=== PATIENT | male | born 1945 | race Caucasian/White ===

== ENCOUNTER 2019-10-07 08:58 | Outpatient (RCR) | payer OTHER, SELFPAY | END 2019-12-22 08:15 | disposition home or self-care (01) | LOC: ANHDMC 08:58 | PROVIDERS: PCP Family Medicine; Visit Provider Family Medicine | DX: E11.65 Type 2 diabetes mellitus with hyperglycemia (principal); Z71.89 Other specified counseling | CPT/HCPCS: G0108 ==

== ENCOUNTER 2020-09-15 08:41 | Outpatient (CLI) | payer OTHER, SELFPAY ==
[2020-09-15 19:03] LABS: Iron 63 ug/dL (49-181)
[2020-09-15 19:05] LABS: Basophils Absolute Auto 0.1 K/mm3 (0.0-0.1); Basophils Percent Auto 0.9 % (0.2-1.2); Eosinophils Absolute Auto 0.3 K/mm3 (0-0.3); Eosinophils Percent Auto 4.1 % (0-4.4); Hematocrit 33.5 % (42.0-52.0); Hemoglobin 10.7 g/dL (14.0-18.0); Immature Granulocyte Absolute 0.04 K/mm3 (0.00-0.031); Immature Granulocyte Percent A 0.5 % (0-0.5); Lymphocytes Absolute Auto 2.25 K/mm3 (0.9-3.2); Lymphocytes Percent Auto 27.8 % (18.3-44.2); Mean Corpuscular HGB Conc 31.9 g/dl (32-36); Mean Corpuscular Hemoglobin 30.1 pg (26-34); Mean Corpuscular Volume 94.4 fl (80-100); Mean Platelet Volume 9.5 fl (7.4-10.4); Monocytes Absolute Auto 0.5 K/mm3 (0.1-0.6); Monocytes Percent Auto 6.4 % (2.6-8.5); Neutrophils Absolute Auto 4.9 K/mm3 (1.3-6.7); Neutrophils Percent Auto 60.3 % (45.5-73.1); Platelet Count Result 186 k/mm3 (150-375); Red Blood Count 3.55 M/mm3 (4.6-6.20); Red Cell Distribution Width 15.2 % (11.5-14.5); White Blood Count 8.1 K/mm3 (4.5-10.0)
[2020-09-15 19:07] LABS: Alanine Aminotransferase 18 U/L (4-50); Albumin Level 3.9 g/dL (3.5-5.1); Alkaline Phosphatase 125 U/L (38-126); Anion Gap 9 mmol/L (8-16); Aspartate Amino Transferase 21 U/L (17-59); Bilirubin,Total 0.4 mg/dL (0.2-1.3); Blood Urea Nitrogen 27 mg/dL (9-20); Calcium 9.3 mg/dL (8.4-10.2); Carbon Dioxide 27 mmol/L (22-30); Chloride 102 mmol/L (98-107); Cholesterol 123 mg/dL (0-200); Estimated Glomerular Filt Rate 54; Glucose 160 mg/dL (65-110); HDL Direct 37 mg/dL; Potassium 4.7 mmol/L (3.4-5.0); Sodium 138 mmol/L (137-145); Triglycerides 71 mg/dL (<150)
[2020-09-15 19:09] LABS: Add Urine Microscopic? YES; Amorphous Sediment Urine Few; Appearance Urine Turbid (Clear); Bacteria Urine Trace /hpf; Bilirubin Urine Negative (Negative); Blood Urine 1+ (Negative); Color Urine Amber (Yellow); Glucose Urine UA 1+ mg/dL (Negative); Ketones Urine Negative (Negative); Leukocyte Esterase Ur 3+ LEU/UL (Negative); Nitrate Urine Negative (Negative); Protein Urine 1+ mg/dL (Negative); Specific Grav Ur 1.012 (1.001-1.035); Urobilinogen Urine Negative mg/dL (<2.0); WBC Clumps Urine Present /HPF; WBC Urine >75 /hpf
[2020-09-15 19:15] LABS: Percent Iron Saturation 22 % (20-50)
[2020-09-15 19:18] LABS: LDL Cholesterol Direct 65 mg/dL
[2020-09-15 19:21] LABS: Creatinine Urine 60.1 mg/dL
[2020-09-15 19:26] LABS: MALB Creatinine Ratio 162.1 mg/g (0-30); Microalbumin Urine Random 97.4 mg/L (0-16.7)
[2020-09-15 19:36] LABS: Prostate Specific Antigen 4.9 ng/mL (< OR = 4.0)
[2020-09-15 20:14] LABS: Folic Acid > 20.0 ng/mL (2.76->20); Vitamin B12 > 1000.0 pg/mL (239-931)
[2020-09-19 06:20] LABS: C-Peptide 0.88 ng/mL (0.80-3.85)
[2020-09-19 10:50] LABS: Testosterone Free 45.3 pg/mL (30.0-135.0); Testosterone Total 365 ng/dL (250-1100)
== END 2020-09-15 08:42 | disposition home or self-care (01) ==
PROVIDERS: PCP Family Medicine; Referring Provider Internal Medicine Endocrinology, Diabetes & Metabolism; Visit Provider Family Medicine
DX: R53.83 Other fatigue (principal); Z82.62 Family history of osteoporosis; E11.59 Type 2 diabetes mellitus with other circulatory complications; I10 Essential (primary) hypertension; Z71.3 Dietary counseling and surveillance; D64.9 Anemia, unspecified; Z79.4 Long term (current) use of insulin; E11.65 Type 2 diabetes mellitus with hyperglycemia; R80.9 Proteinuria, unspecified; Z79.899 Other long term (current) drug therapy; N99.89 Other postprocedural complications and disorders of genitourinary system; Z12.5 Encounter for screening for malignant neoplasm of prostate
CPT/HCPCS: 36415; 80053; 80061; 81001; 82043; 82607; 82746; 83036; 83540; 83550; 84153; 84402; 84403; 84443; 84681; 85025; 87077; 87086; 87088; 87186; G0103

== ENCOUNTER 2020-11-25 10:32 | Outpatient (CLI) | payer OTHER, SELFPAY ==
[2020-11-25 19:48] LABS: Basophils Absolute Auto 0.1 K/mm3 (0.0-0.1); Basophils Percent Auto 0.8 % (0.2-1.2); Eosinophils Absolute Auto 0.2 K/mm3 (0-0.3); Eosinophils Percent Auto 3.3 % (0-4.4); Hematocrit 36.8 % (42.0-52.0); Hemoglobin 11.7 g/dL (14.0-18.0); Immature Granulocyte Absolute 0.02 K/mm3 (0.00-0.031); Immature Granulocyte Percent A 0.3 % (0-0.5); Lymphocytes Absolute Auto 2.41 K/mm3 (0.9-3.2); Mean Corpuscular HGB Conc 31.8 g/dl (32-36); Mean Corpuscular Hemoglobin 30.2 pg (26-34); Mean Corpuscular Volume 95.1 fl (80-100); Mean Platelet Volume 9.9 fl (7.4-10.4); Monocytes Absolute Auto 0.4 K/mm3 (0.1-0.6); Neutrophils Absolute Auto 4.1 K/mm3 (1.3-6.7); Neutrophils Percent Auto 56.6 % (45.5-73.1); Platelet Count Result 183 k/mm3 (150-375); Red Blood Count 3.87 M/mm3 (4.6-6.20); Red Cell Distribution Width 13.8 % (11.5-14.5); White Blood Count 7.3 K/mm3 (4.5-10.0)
[2020-11-25 20:22] LABS: Prostate Specific Antigen 5.5 ng/mL (< OR = 4.0)
== END 2020-11-25 10:33 | disposition home or self-care (01) ==
PROVIDERS: PCP Family Medicine; Visit Provider Family Medicine
DX: D64.9 Anemia, unspecified (principal); R97.20 Elevated prostate specific antigen [PSA]; Z12.5 Encounter for screening for malignant neoplasm of prostate
CPT/HCPCS: 36415; 84153; 85025; G0103

== ENCOUNTER 2021-01-06 11:45 | Outpatient (CLI) | payer OTHER, SELFPAY ==
[2021-01-06 18:23] LABS: Hematocrit 36.7 % (42.0-52.0); Hemoglobin 12.3 g/dL (14.0-18.0); Mean Corpuscular HGB Conc 33.5 g/dl (32-36); Mean Corpuscular Hemoglobin 30.8 pg (26-34); Mean Corpuscular Volume 91.8 fl (80-100); Mean Platelet Volume 10.1 fl (7.4-10.4); Platelet Count Result 157 k/mm3 (150-375); Red Cell Distribution Width 13.4 % (11.5-14.5); White Blood Count 8.2 K/mm3 (4.5-10.0)
[2021-01-06 22:53] LABS: Hemoglobin A1C 8.8 % (<5.7)
[2021-01-07 00:52] LABS: Prostate Specific Antigen 5.4 ng/mL (< OR = 4.0)
== END 2021-01-06 11:46 | disposition home or self-care (01) ==
PROVIDERS: PCP Family Medicine; Visit Provider Family Medicine
DX: E11.65 Type 2 diabetes mellitus with hyperglycemia (principal); R97.20 Elevated prostate specific antigen [PSA]; Z79.4 Long term (current) use of insulin; Z98.890 Other specified postprocedural states; D64.9 Anemia, unspecified; Z12.5 Encounter for screening for malignant neoplasm of prostate
CPT/HCPCS: 36415; 83036; 84153; 85027; G0103

== ENCOUNTER 2021-04-07 10:13 | Outpatient (CLI) | payer OTHER, SELFPAY ==
[2021-04-07 19:09] LABS: Basophils Absolute Auto 0.1 K/mm3 (0.0-0.1); Eosinophils Absolute Auto 0.4 K/mm3 (0-0.3); Eosinophils Percent Auto 4.8 % (0-4.4); Hemoglobin 11.9 g/dL (14.0-18.0); Immature Granulocyte Absolute 0.03 K/mm3 (0.00-0.031); Immature Granulocyte Percent A 0.3 % (0-0.5); Lymphocytes Absolute Auto 2.51 K/mm3 (0.9-3.2); Lymphocytes Percent Auto 28.3 % (18.3-44.2); Mean Corpuscular HGB Conc 33.1 g/dl (32-36); Mean Corpuscular Hemoglobin 31.6 pg (26-34); Mean Corpuscular Volume 95.7 fl (80-100); Mean Platelet Volume 9.9 fl (7.4-10.4); Monocytes Absolute Auto 0.5 K/mm3 (0.1-0.6); Monocytes Percent Auto 5.9 % (2.6-8.5); Neutrophils Absolute Auto 5.3 K/mm3 (1.3-6.7); Neutrophils Percent Auto 59.7 % (45.5-73.1); Platelet Count Result 166 k/mm3 (150-375); Red Blood Count 3.76 M/mm3 (4.6-6.20); Red Cell Distribution Width 13.5 % (11.5-14.5); White Blood Count 8.9 K/mm3 (4.5-10.0)
[2021-04-07 19:20] LABS: Alanine Aminotransferase 22 U/L (4-50); Albumin Level 4.3 g/dL (3.5-5.1); Alkaline Phosphatase 97 U/L (38-126); Anion Gap 7 mmol/L (8-16); Aspartate Amino Transferase 23 U/L (17-59); Bilirubin,Total 0.4 mg/dL (0.2-1.3); Blood Urea Nitrogen 46 mg/dL (9-20); Calcium 9.5 mg/dL (8.4-10.2); Carbon Dioxide 28 mmol/L (22-30); Chloride 100 mmol/L (98-107); Estimated Glomerular Filt Rate 49; Glucose 305 mg/dL (65-110); Potassium 5.1 mmol/L (3.4-5.0); Sodium 135 mmol/L (137-145)
[2021-04-07 19:46] LABS: Hemoglobin A1C 8.2 % (<5.7)
[2021-04-07 20:10] LABS: Vitamin B12 > 1000.0 pg/mL (239-931)
== END 2021-04-07 10:14 | disposition home or self-care (01) ==
PROVIDERS: PCP Family Medicine; Visit Provider Family Medicine
DX: R20.0 Anesthesia of skin (principal); D64.9 Anemia, unspecified; E11.65 Type 2 diabetes mellitus with hyperglycemia; I48.0 Paroxysmal atrial fibrillation; Z86.73 Personal history of transient ischemic attack (TIA), and cerebral infarction without residual deficits; I34.0 Nonrheumatic mitral (valve) insufficiency; Z79.4 Long term (current) use of insulin
CPT/HCPCS: 36415; 80053; 82607; 83036; 85025

== ENCOUNTER 2021-07-07 10:33 | Outpatient (CLI) | payer OTHER, SELFPAY ==
[2021-07-07 18:49] LABS: Hematocrit 36.9 % (42.0-52.0); Hemoglobin 11.5 g/dL (14.0-18.0); Mean Corpuscular HGB Conc 31.2 g/dl (32-36); Mean Corpuscular Hemoglobin 30.1 pg (26-34); Mean Corpuscular Volume 96.6 fl (80-100); Platelet Count Result 172 k/mm3 (150-375); Red Blood Count 3.82 M/mm3 (4.6-6.20); Red Cell Distribution Width 14.1 % (11.5-14.5); White Blood Count 8.2 K/mm3 (4.5-10.0)
[2021-07-07 19:12] LABS: Creatinine Urine 67.4 mg/dL
[2021-07-07 19:17] LABS: MALB Creatinine Ratio 70.5 mg/g (0-30); Microalbumin Urine Random 47.5 mg/L (0-16.7)
[2021-07-07 19:47] LABS: Alanine Aminotransferase 21 U/L (6-50); Albumin Level 4.3 g/dL (3.5-5.1); Alkaline Phosphatase 99 U/L (38-126); Anion Gap 10 mmol/L (8-16); Aspartate Amino Transferase 26 U/L (17-59); Bilirubin,Total 0.5 mg/dL (0.2-1.3); Blood Urea Nitrogen 37 mg/dL (9-20); Calcium 9.1 mg/dL (8.4-10.2); Carbon Dioxide 25 mmol/L (22-30); Chloride 98 mmol/L (98-107); Estimated Glomerular Filt Rate 49; Glucose 278 mg/dL (65-110); Potassium 5.3 mmol/L (3.4-5.0); Sodium 133 mmol/L (137-145)
[2021-07-07 20:01] LABS: Hemoglobin A1C 7.9 % (<5.7)
[2021-07-07 20:17] LABS: Prostate Specific Antigen 5.6 ng/mL (< OR = 4.0)
== END 2021-07-07 10:34 | disposition home or self-care (01) ==
PROVIDERS: PCP Family Medicine; Visit Provider Family Medicine
DX: D64.9 Anemia, unspecified (principal); Z86.73 Personal history of transient ischemic attack (TIA), and cerebral infarction without residual deficits; E11.65 Type 2 diabetes mellitus with hyperglycemia; Z79.4 Long term (current) use of insulin; Z12.5 Encounter for screening for malignant neoplasm of prostate
CPT/HCPCS: 36415; 80053; 82043; 83036; 84153; 85027; G0103

== ENCOUNTER 2021-08-29 14:59 | Outpatient (CLI) | payer OTHER, SELFPAY ==
--- NOTE | ~2021-08-29 | XR_ITS ---
XR ankle RT min 3V DATE: 08/29/2021 15:25 INDICATION: Pain and stiffness of right ankle. No known injury TECHNIQUE: 4 views COMPARISON: None FINDINGS: There is prominent plantar and mild posterior calcaneal enthesopathy. No fracture or dislocation of the ankle or disruption of the ankle mortise. No periosteal reaction or bone destruction. IMPRESSION: Plantar and posterior calcaneal enthesopathy Reviewed, dictated and finalized at location A.
[2021-08-29 20:27] LABS: Anion Gap 9 mmol/L (8-16); Blood Urea Nitrogen 35 mg/dL (9-20); Calcium 9.2 mg/dL (8.4-10.2); Carbon Dioxide 27 mmol/L (22-30); Chloride 102 mmol/L (98-107); Estimated Glomerular Filt Rate 54; Glucose 201 mg/dL (65-110); Potassium 4.4 mmol/L (3.4-5.0); Sodium 138 mmol/L (137-145)
== END 2021-08-29 15:00 | disposition home or self-care (01) ==
PROVIDERS: PCP Family Medicine; Visit Provider Family Medicine
DX: S93.429A Sprain of deltoid ligament of unspecified ankle, initial encounter (principal); X58.XXXA Exposure to other specified factors, initial encounter; E87.5 Hyperkalemia; M77.31 Calcaneal spur, right foot
CPT/HCPCS: 36415; 73610; 80048

== ENCOUNTER 2021-10-06 11:54 | Outpatient (CLI) | payer OTHER, SELFPAY ==
[2021-10-06 19:58] LABS: Hematocrit 37.6 % (42.0-52.0); Hemoglobin 12.3 g/dL (14.0-18.0); Mean Corpuscular HGB Conc 32.7 g/dl (32-36); Mean Corpuscular Hemoglobin 30.9 pg (26-34); Mean Corpuscular Volume 94.5 fl (80-100); Mean Platelet Volume 10.2 fl (7.4-10.4); Platelet Count Result 172 k/mm3 (150-375); Red Blood Count 3.98 M/mm3 (4.6-6.20); Red Cell Distribution Width 13.5 % (11.5-14.5)
[2021-10-06 21:05] LABS: Hemoglobin A1C 7.7 % (<5.7)
== END 2021-10-06 11:55 | disposition home or self-care (01) ==
LOC: ANHBWCLAB 11:55
PROVIDERS: PCP Family Medicine; Visit Provider Family Medicine
DX: E11.65 Type 2 diabetes mellitus with hyperglycemia (principal); Z79.4 Long term (current) use of insulin; D46.9 Myelodysplastic syndrome, unspecified
CPT/HCPCS: 36415; 83036; 85027

== ENCOUNTER 2021-12-05 11:35 | Outpatient (CLI) | payer OTHER, SELFPAY ==
[2021-12-05 20:20] LABS: Anion Gap 11 mmol/L (8-16); Blood Urea Nitrogen 31 mg/dL (9-20); Calcium 9.2 mg/dL (8.4-10.2); Carbon Dioxide 27 mmol/L (22-30); Chloride 99 mmol/L (98-107); Estimated Glomerular Filt Rate 49; Glucose 448 mg/dL (65-110); Potassium 4.7 mmol/L (3.4-5.0); Sodium 137 mmol/L (137-145)
[2021-12-05 20:47] LABS: Prostate Specific Antigen 5.6 ng/mL (< OR = 4.0)
== END 2021-12-05 11:36 | disposition home or self-care (01) ==
PROVIDERS: PCP Family Medicine; Visit Provider Family Medicine
DX: N40.0 Benign prostatic hyperplasia without lower urinary tract symptoms (principal); N17.9 Acute kidney failure, unspecified; G62.9 Polyneuropathy, unspecified; Z86.73 Personal history of transient ischemic attack (TIA), and cerebral infarction without residual deficits; E11.65 Type 2 diabetes mellitus with hyperglycemia; Z79.4 Long term (current) use of insulin; Z79.899 Other long term (current) drug therapy; Z12.5 Encounter for screening for malignant neoplasm of prostate
CPT/HCPCS: 36415; 80048; 82607; 84153; 84443; G0103

== ENCOUNTER 2022-01-16 10:47 | Outpatient (CLI) | payer OTHER, SELFPAY | END 2022-01-16 10:48 | disposition home or self-care (01) | PROVIDERS: PCP Family Medicine; Visit Provider Family Medicine | DX: E11.9 Type 2 diabetes mellitus without complications (principal) | CPT/HCPCS: 36415; 83036 ==

== ENCOUNTER 2022-03-07 11:27 | Outpatient (CLI) | payer OTHER, SELFPAY ==
[2022-03-07 20:28] LABS: Basophils Absolute Auto 0.1 K/mm3 (0.0-0.1); Basophils Percent Auto 1.2 % (0.2-1.2); Eosinophils Absolute Auto 0.4 K/mm3 (0-0.3); Hematocrit 39.2 % (42.0-52.0); Hemoglobin 12.5 g/dL (14.0-18.0); Immature Granulocyte Absolute 0.02 K/mm3 (0.00-0.031); Immature Granulocyte Percent A 0.3 % (0-0.5); Lymphocytes Absolute Auto 2.28 K/mm3 (0.9-3.2); Lymphocytes Percent Auto 31.4 % (18.3-44.2); Mean Corpuscular HGB Conc 31.9 g/dl (32-36); Mean Corpuscular Hemoglobin 30.8 pg (26-34); Mean Corpuscular Volume 96.6 fl (80-100); Mean Platelet Volume 10.1 fl (7.4-10.4); Monocytes Absolute Auto 0.6 K/mm3 (0.1-0.6); Monocytes Percent Auto 7.8 % (2.6-8.5); Neutrophils Percent Auto 54.3 % (45.5-73.1); Platelet Count Result 151 k/mm3 (150-375); Red Blood Count 4.06 M/mm3 (4.6-6.20); Red Cell Distribution Width 13.2 % (11.5-14.5); White Blood Count 7.3 K/mm3 (4.5-10.0)
[2022-03-07 20:34] LABS: Alanine Aminotransferase 21 U/L (6-50); Albumin Level 4.5 g/dL (3.5-5.1); Alkaline Phosphatase 94 U/L (38-126); Anion Gap 5 mmol/L (8-16); Aspartate Amino Transferase 29 U/L (17-59); Bilirubin,Total 0.5 mg/dL (0.2-1.3); Blood Urea Nitrogen 30 mg/dL (9-20); Calcium 9.1 mg/dL (8.4-10.2); Carbon Dioxide 30 mmol/L (22-30); Chloride 102 mmol/L (98-107); Estimated Glomerular Filt Rate 53; Glucose 111 mg/dL (65-110); Potassium 4.6 mmol/L (3.4-5.0); Sodium 137 mmol/L (137-145)
[2022-03-07 22:32] LABS: Appearance Urine Clear (Clear); Bilirubin Urine Negative (Negative); Blood Urine Negative (Negative); Color Urine Yellow (Yellow); Glucose Urine UA Trace mg/dL (Negative); Ketones Urine Negative (Negative); Leukocyte Esterase Ur Trace LEU/UL (NEGATIVE); Nitrate Urine Negative (Negative); Protein Urine Negative (Negative); Urobilinogen Urine 0.2 mg/dL (<2.0)
[2022-03-07 23:05] LABS: Mucus Urine Rare /lpf; RBC Urine 0-2 /hpf (0-2)
[2022-03-07 23:18] LABS: Add Urine Microscopic? YES
== END 2022-03-07 11:28 | disposition home or self-care (01) ==
LOC: ANHBWCLAB 11:28
PROVIDERS: PCP Family Medicine; Visit Provider Family Medicine
DX: R20.0 Anesthesia of skin (principal); G62.9 Polyneuropathy, unspecified; E87.5 Hyperkalemia; N40.0 Benign prostatic hyperplasia without lower urinary tract symptoms; R53.1 Weakness
CPT/HCPCS: 36415; 80053; 81001; 85025

== ENCOUNTER 2022-06-06 10:48 | Outpatient (CLI) | payer OTHER, SELFPAY ==
[2022-06-06 20:55] LABS: Hemoglobin A1C 7.8 % (<5.7)
== END 2022-06-06 10:49 | disposition home or self-care (01) ==
LOC: ANHBWCLAB 10:50
PROVIDERS: PCP Family Medicine; Visit Provider Nurse Practitioner Family
DX: E11.65 Type 2 diabetes mellitus with hyperglycemia (principal); Z79.4 Long term (current) use of insulin
CPT/HCPCS: 36415; 83036

== ENCOUNTER 2022-09-11 10:36 | Outpatient (CLI) | payer OTHER, SELFPAY ==
[2022-09-11 19:17] LABS: Hemoglobin 12.1 g/dL (14.0-18.0); Mean Corpuscular HGB Conc 31.8 g/dl (32-36); Mean Corpuscular Hemoglobin 31.2 pg (26-34); Mean Corpuscular Volume 97.9 fl (80-100); Mean Platelet Volume 10.3 fl (7.4-10.4); Platelet Count Result 149 k/mm3 (150-375); Red Blood Count 3.88 M/mm3 (4.6-6.20); Red Cell Distribution Width 13.5 % (11.5-14.5); White Blood Count 7.6 K/mm3 (4.5-10.0)
[2022-09-11 20:27] LABS: Cholesterol 134 mg/dL (0-200); HDL Direct 37 mg/dL; Triglycerides 73 mg/dL (<150)
[2022-09-11 20:36] LABS: Alanine Aminotransferase 25 U/L (6-50); Albumin Level 4.6 g/dL (3.5-5.1); Alkaline Phosphatase 91 U/L (38-126); Anion Gap 10 mmol/L (8-16); Aspartate Amino Transferase 41 U/L (17-59); Bilirubin,Total 0.4 mg/dL (0.2-1.3); Blood Urea Nitrogen 32 mg/dL (9-20); Calcium 9.5 mg/dL (8.4-10.2); Carbon Dioxide 28 mmol/L (22-30); Chloride 102 mmol/L (98-107); Estimated Glomerular Filt Rate 42; Glucose 145 mg/dL (65-110); Potassium 4.9 mmol/L (3.4-5.0); Sodium 140 mmol/L (137-145)
[2022-09-11 20:38] LABS: LDL Cholesterol Direct 69 mg/dL
[2022-09-11 21:44] LABS: Creatinine Urine 68.6 mg/dL
[2022-09-11 21:49] LABS: MALB Creatinine Ratio 26.5 mg/g (0-30); Microalbumin Urine Random 18.2 mg/L (0-16.7)
[2022-09-11 22:00] LABS: Hemoglobin A1C 7.5 % (<5.7)
== END 2022-09-11 10:37 | disposition home or self-care (01) ==
PROVIDERS: PCP Family Medicine; Visit Provider Family Medicine
DX: D64.9 Anemia, unspecified (principal); E11.65 Type 2 diabetes mellitus with hyperglycemia; E78.5 Hyperlipidemia, unspecified; E87.5 Hyperkalemia; G62.9 Polyneuropathy, unspecified; I34.0 Nonrheumatic mitral (valve) insufficiency; I48.0 Paroxysmal atrial fibrillation; N40.0 Benign prostatic hyperplasia without lower urinary tract symptoms; R20.0 Anesthesia of skin; R53.1 Weakness; R97.20 Elevated prostate specific antigen [PSA]; Z79.4 Long term (current) use of insulin; Z86.73 Personal history of transient ischemic attack (TIA), and cerebral infarction without residual deficits; Z12.5 Encounter for screening for malignant neoplasm of prostate
CPT/HCPCS: 36415; 80053; 80061; 82043; 83036; 84153; 85027; G0103

== ENCOUNTER 2022-12-11 11:11 | Outpatient (CLI) | payer OTHER, SELFPAY ==
[2022-12-11 20:54] LABS: Alanine Aminotransferase 29 U/L (6-50); Albumin Level 4.4 g/dL (3.5-5.1); Alkaline Phosphatase 100 U/L (38-126); Anion Gap 8 mmol/L (8-16); Aspartate Amino Transferase 48 U/L (17-59); Bilirubin,Total 0.5 mg/dL (0.2-1.3); Blood Urea Nitrogen 29 mg/dL (9-20); Calcium 9.2 mg/dL (8.4-10.2); Carbon Dioxide 28 mmol/L (22-30); Chloride 103 mmol/L (98-107); Estimated Glomerular Filt Rate 49; Glucose 184 mg/dL (65-110); Potassium 4.5 mmol/L (3.4-5.0); Sodium 139 mmol/L (137-145)
[2022-12-11 21:02] LABS: Creatinine Urine 69.6 mg/dL
[2022-12-11 21:06] LABS: MALB Creatinine Ratio 38.8 mg/g (0-30)
[2022-12-11 23:23] LABS: Hemoglobin A1C 7.3 % (<5.7)
== END 2022-12-11 11:12 | disposition home or self-care (01) ==
PROVIDERS: PCP Family Medicine; Visit Provider Family Medicine
DX: E11.9 Type 2 diabetes mellitus without complications (principal)
CPT/HCPCS: 36415; 80053; 82043; 83036

== ENCOUNTER 2023-03-22 11:27 | Outpatient (CLI) | payer OTHER, SELFPAY ==
[2023-03-22 18:58] LABS: Anion Gap 10 mmol/L (8-16); Blood Urea Nitrogen 25 mg/dL (9-20); Calcium 9.5 mg/dL (8.4-10.2); Carbon Dioxide 27 mmol/L (22-30); Chloride 100 mmol/L (98-107); Cholesterol 117 mg/dL (0-200); Estimated Glomerular Filt Rate 53; Glucose 143 mg/dL (65-110); HDL Direct 37 mg/dL; Potassium 4.9 mmol/L (3.4-5.0); Sodium 137 mmol/L (137-145); Triglycerides 80 mg/dL (<150)
[2023-03-22 19:08] LABS: LDL Cholesterol Direct 57 mg/dL
[2023-03-22 19:16] LABS: Hemoglobin A1C 7.9 % (<5.7)
[2023-03-22 19:41] LABS: Creatinine Urine 86.8 mg/dL
[2023-03-22 19:46] LABS: Microalbumin Urine Random 23.4 mg/L (0-16.7)
== END 2023-03-22 11:28 | disposition home or self-care (01) ==
PROVIDERS: PCP Nurse Practitioner Adult Health; Visit Provider Nurse Practitioner Adult Health
DX: E11.9 Type 2 diabetes mellitus without complications (principal)
CPT/HCPCS: 36415; 80048; 80061; 82043; 83036

== ENCOUNTER 2023-06-25 11:41 | Outpatient (CLI) | payer OTHER, SELFPAY ==
[2023-06-25 19:31] LABS: Hematocrit 40.2 % (42.0-52.0); Hemoglobin 12.3 g/dL (14.0-18.0); Mean Corpuscular HGB Conc 30.6 g/dl (32-36); Mean Corpuscular Hemoglobin 29.8 pg (26-34); Mean Corpuscular Volume 97.3 fl (80-100); Mean Platelet Volume 10.5 fl (7.4-10.4); Platelet Count Result 184 k/mm3 (150-375); Red Blood Count 4.13 M/mm3 (4.6-6.20); Red Cell Distribution Width 14.1 % (11.5-14.5); White Blood Count 7.8 K/mm3 (4.5-10.0)
[2023-06-25 19:33] LABS: Creatinine Urine 71.6 mg/dL
[2023-06-25 19:38] LABS: Iron 77 ug/dL (49-181); Microalbumin Urine Random 18.6 mg/L (0-16.7)
[2023-06-25 19:48] LABS: Percent Iron Saturation 26 % (20-50)
[2023-06-25 20:18] LABS: Prostate Specific Antigen 9.2 ng/mL (< OR = 4.0)
[2023-06-25 21:04] LABS: Hemoglobin A1C 7.4 % (<5.7)
== END 2023-06-25 11:42 | disposition home or self-care (01) ==
PROVIDERS: PCP Nurse Practitioner Adult Health; Visit Provider Family Medicine
DX: D64.9 Anemia, unspecified (principal); E11.65 Type 2 diabetes mellitus with hyperglycemia; I34.0 Nonrheumatic mitral (valve) insufficiency; I48.0 Paroxysmal atrial fibrillation; N18.9 Chronic kidney disease, unspecified; R53.1 Weakness; R97.20 Elevated prostate specific antigen [PSA]; S93.429A Sprain of deltoid ligament of unspecified ankle, initial encounter; Z00.00 Encounter for general adult medical examination without abnormal findings; Z79.4 Long term (current) use of insulin; Z86.73 Personal history of transient ischemic attack (TIA), and cerebral infarction without residual deficits; Z95.3 Presence of xenogenic heart valve; Z12.5 Encounter for screening for malignant neoplasm of prostate
CPT/HCPCS: 36415; 82043; 82607; 83036; 83540; 83550; 84153; 85027; G0103

== ENCOUNTER 2023-07-03 15:23 | Outpatient (CLI) | payer OTHER, SELFPAY ==
--- NOTE | 2023-07-03 15:50 | ECHO_ITS ---
Patient Info Name: Elio Licona Age: 77 years : 1945 Gender: Male Ht: 73 in Wt: 225 lbs BSA: 2.31 m2 HR: 78 bpm BP: 143 / 79 mmHg Heart Rhythm: Sinus Rhythm Technical Quality: Fair Exam Date: 07/03/2023 4:00 PM Exam Location: Echo Lab Patient Status: Outpatient Admit Date: 07/03/2023 Staff Ordering Physician: Dragan Vick DO Pumping Supervisor: Brianna Kumar RDCS Attending Provider: Dragan Vick DO Referring Physician: Nicanor GONZALES; Exam Type: CA echo doppler color flow Study Info Indications - Presence of xenogenic heart valve Complete two-dimensional, color flow and Doppler transthoracic echocardiogram is performed. Summary 1. Complete two-dimensional, color flow and Doppler transthoracic echocardiogram is performed. 2. Left ventricular chamber dimension is normal. 3. Left ventricular systolic function is normal, estimated at 60-65%. 4. The left ventricular diastolic function is abnormal. 5. E/e' 18 is elevated. 6. Left atrial chamber dimension is moderately enlarged. 7. Bioprosthetic aortic valve. 8. There is mild sclerosis of the bioprosthetic aortic valve leaflets. 9. Bioprosthetic mitral valve. Left Ventricle E/e' 18 is elevated. Left ventricular chamber dimension is normal. Left ventricular systolic function is normal, estimated at 60-65%. The left ventricular diastolic function is abnormal. Right Ventricle Right ventricular systolic function is normal and with normal TAPSE 2.2 cm. Right ventricular chamber dimension is normal. Left Atria Left atrial chamber dimension is moderately enlarged. Right Atria Right atrial chamber dimension is normal. Aortic Valve Bioprosthetic aortic valve. The bioprosthetic aortic valve is not well visualized. There is mild sclerosis of the bioprosthetic aortic valve leaflets. There is no regurgitation of the bioprosthetic aortic valve. Pulmonic Valve There is no pulmonic regurgitation. Mitral Valve Bioprosthetic mitral valve. There is no stenosis of the bioprosthetic mitral valve. There is no regurgitation of the bioprosthetic mitral valve. Tricuspid Valve There is no tricuspid valve regurgitation. Pericardium/Pleural There is no pericardial effusion. Inferior Vena Cava Normal inferior vena cava with >50% collapse upon inspiration consistent with normal right atrial pressure, 5 mmHg. Aorta The aortic root size at the sinus of Valsalva is normal. Left Ventricular Outflow Tract Name Value Normal LVOT 2D LVOT Diameter 2.0 cm LVOT Doppler LVOT Peak Gradient 6 mmHg LVOT Mean Gradient 3 mmHg LVOT VTI 25 cm LVOT VTI/AV VTI Ratio 0.7 LVOT Stroke Volume 76 ml LVOT CO 5.0 l/min LVOT CI 2.2 l/min/m2 Pulmonic Valve Name Value Normal RVOT Doppler RVOT Peak Gradient
== END 2023-07-03 15:24 | disposition home or self-care (01) ==
PROVIDERS: PCP Nurse Practitioner Adult Health; Visit Provider Internal Medicine Cardiovascular Disease
DX: Z95.3 Presence of xenogenic heart valve (principal)
CPT/HCPCS: 93306